=== PATIENT | female | born 1955 | race Caucasian/White ===

== ENCOUNTER 2022-05-13 07:10 | Emergency (ER) | payer OTHER ==
[2022-05-13 07:25] VITALS: BP 153/74; PULSE 76; TEMP 98.1; BMI 27.6
== END 2022-05-13 08:30 | disposition home or self-care (01) ==
LOC: JERFT 07:10
DX: M25.561 Pain in right knee (principal)
CPT/HCPCS: 73562-TC-RT-FY; 99283-25